=== PATIENT | female | born 1960 | race Caucasian/White ===

== ENCOUNTER 2020-03-17 22:13 | Inpatient (IN) | payer MEDICARE, SELFPAY ==
[2020-03-17 22:26] VITALS: BMI 29.5
[2020-03-17 22:27] VITALS: BP 111/70; PULSE 79; RESP 23; O2SAT 91
--- NOTE | 2020-03-17 22:59 | PM.HP ---
Providers/Chief Complaint Admitting Physician: Angela Madrigal MD Primary Care Provider: Matthew Hernandez DO Chief Complaint: covid pneumonia History of Present Illness Jo Patterson is a 59 year old female without significant past medical history presented to the [facility] second time in last 1 week for worsening shortness of breath. Patient got tested for COVID-19 on 03/04, she was discharged from the ER as she was saturating well on room air, she came back to the ER today for worsening of shortness of breath. Patient is stating that at home her temperature was 100.4 -100.5, her myalgia has been getting worse, she has not been able to eat, she feels dehydrated. No previous history of CHF, NV, stroke or heart failure. She is denying diarrhea, endorsing rib pain on taking deep breaths. Diagnostics from the other facility reviewed, white count 3.9, creatinine 1.27, magnesium 2, CRP 127, bicarb 21, there is no D-dimer however CTA was requested which did not reveal any PE however showed COVID-19 related pulmonary infiltrates versus mild vascular congestion, BNP 600, she was given normal saline fluid resuscitation, remdesivir 200 mg first dose at the facility. At the time of my evaluation she was saturating well on 10 L nasal cannula 93%, complaint of pleuritic pain bilaterally on taking deep breath. No other active complaints. Review of Systems Const: Reports: fever(s), chills, body aches, change in appetite, fatigue and malaise Eyes: Denies: change in vision ENMT: Denies: throat pain Card: Reports: dyspnea on exertion; Denies: chest pain Resp: Reports: dyspnea, non-productive cough and pain on inspiration GI: Denies: abdominal pain : Denies: flank pain Musc: Denies: neck pain Skin/Breast: Denies: rash Neuro: Denies: headache(s) Psych: Reports: anxiety Endo: Denies: polyuria David/Lymph: Denies: easy bruising All/Imm: Denies: urticaria Medications/Allergies Home Medications Medication Instructions Recorded Confirmed Last Taken Type allopurinol 300 mg PO DAILY 03/17/20 03/17/20 Unknown History cholecalciferol (vitamin D3) 100 mcg PO DAILY 03/17/20 03/17/20 Unknown History [Vitamin D3] lisinopril 20 mg PO DAILY 03/17/20 03/17/20 Unknown History omeprazole 40 mg PO DAILY 03/17/20 03/17/20 Unknown History Allergies Allergy/AdvReac Type Severity Reaction Status Date / Time levofloxacin [From Levaquin] Allergy ALGY-Rash Verified 03/17/20 22:43 Penicillins Allergy ADR-Itching Verified 03/17/20 22:42 PFSH Acute PFSH: Medical History Fibromyalgia Hypertension PPD positive, treated Surgical History H/O arthroscopy H/O elbow surgery History of carpal tunnel surgery History of esophagogastroduodenoscopy (EGD) Hx of cholecystectomy Hx of colonoscopy Family History Mother Cancer Breast cancer Denies family history of Diabetes Social History Smoking and tobacco status: never smoked Alcohol intake: never Substance/Drug Use: never Household members: spouse Housing: House Vitals/I&O/Wt Weight last 48 hrs Weight 75.705 kg Weight 75.705 kg Physical Exam Narrative: EXAM NARRATIVE: Middle-age female who is currently on 10 L nasal cannula oxygen supplementation saturating 93% Seems to be in distress because of myalgia Awake alert oriented x3 Looks extremely dehydrated No active signs of CHF exacerbation Bilateral breath sounds without adventitious rhonchi or crackles S1, S2 no tachycardia EOMI, PERRLA GCS 15 no neurological deficit Dry buccal mucous membrane Lower extremity no edema gangrene ulcer A&P Assessment and plan (1) COVID-19: Status: Acute (2) Acute respiratory failure with hypoxia: Status: Acute (3) ADELSO (acute kidney injury): Status: Acute Additional A&P Information Acute hypoxic respiratory failure secondary to worsening COVID-19 symptoms No signs of PE, currently requiring 10 L nasal cannula oxygen supplementation CRP 127, no signs of sepsis I have requested procalcitonin level, Reviewed CTA results and x-ray Continue Decadron and remdesivir for now She is endorsing rib pain on deep breaths, avoid NSAIDs because of abnormal kidney function, would only allow Tylenol for now Acute kidney injury Seems multifactorial dehydration and use of lisinopril I do not have previous creatinine level to compare her creatinine is 1.27 Not endorsing any dysuria or frequency Clinically looks dehydrated Monitor urine output and creatinine and correlate Hold lisinopril History of gout: I would continue allopurinol 100 mg a day GERD: Pepcid 20 mg daily Full code Cardiac diet DVT prophylaxis Heparin Attestations Medical Necessity Statement*: Anticipating stay in the hospital cross more than 2 midnights currently requiring 10 L nasal cannula oxygen supplementation Time Spent in Patient Care: (>than 50% of time spent in counselling and/or direct pt care on unit). 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
[2020-03-17 23:00] VITALS: BP 116/74; PULSE 79; RESP 25; O2SAT 95
[2020-03-17 23:26] VITALS: PULSE 77; RESP 18; O2SAT 90
[2020-03-18] VITALS (30 sets, daily range): BP systolic 94–141; BP diastolic 56–87; PULSE 59–103; RESP 20–31; TEMP 36.4–36.7; O2SAT 85–98
--- NOTE | 2020-03-18 00:35 | USCV_ITS ---
Jo Patterson Age: 59 Gender: F : 1960 Exam Date: 03/18/2020 06:18 Ordering Phys: Angela Madrigal MD Technologist: Teresa Clinton Exam Location: [facility] [place] Indication: COVID AND SOB BP: 118 / 76 HR: 72 Rhythm: Sinus Technical Quality: Adequate MEASUREMENTS (Male / Female) Normal Values 2D ECHO LV Diastolic Diameter PLAX 3.6 cm 4.2 - 5.9 / 3.9 - 5.3 cm LV Systolic Diameter PLAX 2.4 cm LV Chamber Size 3.0 cm IVS Diastolic Thickness 1.0 cm 0.6 - 1.0 / 0.6 - 0.9 cm IVS Systolic Thickness 1.4 cm LVPW Diastolic Thickness 1.3 cm 0.6 - 1.0 / 0.6 - 0.9 cm LVPW Systolic Thickness 1.3 cm RV Chamber Size 2.5 cm LVOT Diameter 2.0 cm LV Ejection Fraction 2D Teich 66.1 % LV Ejection Fraction MOD 2C 44.6 % LV Ejection Fraction 2C AL 44.4 % LA Diameter 3.0 cm LA Width 2.6 cm LA Height 3.4 cm RA Width 2.5 cm RA Height 3.7 cm Aorta at Sinotubular Diameter 3.0 cm M-MODE LV Diastolic Diameter MM 2.9 cm 4.2 - 5.9 / 3.9 - 5.3 cm LV Systolic Diameter MM 2.2 cm LV Ejection Fraction MM Teich 52.0 % IVS Diastolic Thickness MM 0.9 cm 0.6 - 1.0 / 0.6 - 0.9 cm IVS Systolic Thickness MM 0.9 cm LVPW Diastolic Thickness MM 0.9 cm 0.6 - 1.0 / 0.6 - 0.9 cm LVPW Systolic Thickness MM 1.7 cm RV Diastolic Diameter MM 1.0 cm Aortic Annulus Diameter 3.4 cm LA Ao Ratio MM 1.2 MV E Point Septal Separation 0.4 cm DOPPLER AV Peak Velocity 146.0 cm/s LVOT Peak Velocity 103.0 cm/s AV Area Cont Eq vti 3.0 cm squared AV Area Cont Eq pk 2.2 cm squared MV Area PHT 5.0 cm squared Mitral E to A Ratio 0.7 MV E' Velocity 35.5 cm/s Mitral E to MV E' Ratio 16.0 Mitral E to LV E' Lateral Ratio 17.3 Mitral E to LV E' Septal Ratio 15.0 TR Peak Velocity 169.5 cm/s TR Peak Gradient 11.5 mmHg TR Mean Velocity 119.4 cm/s TR Mean Gradient 6.8 mmHg TR Velocity Time Integral 47.7 cm TV Peak E Velocity 86.0 cm/s Right Atrial Pressure 3.0 mmHg Pulmonary Artery Systolic Pressu 14.5 mmHg PV Peak Velocity 112.0 cm/s RV Acceleration Time 0.2 s RV Ejection Time 0.4 s RV AcT/ET 0.4 FINDINGS Left Ventricle Normal left ventricular size and systolic function, EF 55 %. No regional wall motion abnormalities. Grade I/IV diastolic dysfunction (abnormal relaxation filling pattern), normal to mildly elevated filling pressures. Right Ventricle The right ventricle is normal in size and function. Right Atrium The right atrium is normal in size. Left Atrium There is flow turbulence in the interatrial septum, suggesting a patent foramen ovale Mitral Valve Thickened mitral valve. Mild mitral annular calcification. Aortic Valve Mild aortic valve regurgitation. Tricuspid Valve Not visualized well Pulmonic Valve Pulmonic valve not well visualized. Pericardium No pericardial effusion. Aorta Normal ascending aorta dimension. CONCLUSIONS Normal left ventricular size and systolic function, EF 55 %. No regional wall motion abnormalities. Grade I/IV diastolic dysfunction (abnormal relaxation filling pattern), normal to mildly elevated filling pressures. There is flow turbulence in the interatrial septum, suggesting a patent foramen ovale. Thickened mitral valve. Mild mitral annular calcification. Mild aortic valve regurgitation. There is no pericardial effusion. There are no intracardiac masses. No previous study is available for comparison. Dr Tosha Lopez MD [facility] (Electronically Signed) Final Date: 18 March 2020 09:03 S
[2020-03-18] MEDS: heparin 5,000 unit/mL INJ 1 mL 5000 UNIT SUBCUT ×2 (00:49→08:15)
[2020-03-18 01:24] LABS: Troponin T (5th) Once 7 ng/L (0-10)
[2020-03-18 01:50] LABS: Procalcitonin 0.22 ng/mL (0-0.5)
[2020-03-18 06:27] LABS: Hematocrit 40.5 % (37.0-47.0); Hemoglobin 13.5 g/dL (11.5-15.3); Lymphocytes # 0.7 10^3/uL (0.8-4.8); Mean Corpuscular HGB Conc 33.3 g/dL (30.0-36.0); Mean Corpuscular Volume 93.1 fL (81-99); Monocytes # 0.1 10^3/uL (0.2-0.9); Monocytes % 5.8 %; Neutrophils # 1.57 10^3/uL (1.8-7.7); Neutrophils % 64.6 %; Nucleated Red Blood Cells % 0 %; Platelet Count 222 10^3/cmm (130-400); Red Blood Count 4.35 10^6/uL (4.1-5.3); Red Cell Distribution Width 12.8 % (12.1-15.1); White Blood Count 2.4 10^3/uL (4.0-10.0)
[2020-03-18 07:10] LABS: Slide Review Slide Review Perform
[2020-03-18 07:13] LABS: D Dimer 1.25 ug/mIFEU (0-0.59)
[2020-03-18 07:16] LABS: Alanine Aminotransferase 29 U/L (0-33); Albumin Level 3.1 g/dL (3.5-5.2); Alkaline Phosphatase 42 IU/L (35-105); Anion Gap 14.1 (5-19); Aspartate Amino Transferase 73 U/L (0-32); Blood Urea Nitrogen 17 mg/dL (8-23); C Reactive Protein 104.5 mg/L (0.0-4.9); Calcium 8.5 mg/dL (8.5-10.5); Carbon Dioxide 24 mmol/L (22-29); Chloride 108 mmol/L (98-107); Globulin 3.2 g/dL (1.3-4.6); Glomerular Filtration Rate 85.1 mL/min (90-130); Glucose 137 mg/dL (65-115); Lactate Dehydrogenase 680 U/L (135-214); Osmolality Calculated 298 mOsm/kg (285-295); Potassium 4.1 mmol/L (3.5-5.1); Sodium 142 mmol/L (136-145); Total Bilirubin 0.3 mg/dL (0.15-1.2); Total Protein 6.3 g/dL (6.6-8.7)
[2020-03-18] MEDS: ascorbic acid 500 mg Tablet PO (08:16)
[2020-03-18] MEDS: lisinopril 20 mg Tablet PO (08:16)
[2020-03-18] MEDS: dexamethasone 4 mg Tablet 6 MG PO (08:16)
[2020-03-18] MEDS: zinc gluconate 50 mg Tablet PO (08:16)
[2020-03-18] MEDS: allopurinol 100 mg Tablet PO (08:18)
[2020-03-18] MEDS: albuterol 8 gm MDI 2 PUFF INHALATION ×2 (08:52→20:29)
--- NOTE | 2020-03-18 10:50 | P.PN_ITS ---
Subjective Subjective: Interval history: Patient reports feeling better this morning. She is saturating in the high 80s on 15 L by high flow nasal cannula. She denies chest pain or abdominal pain. Her white blood cell count is 2.4 which is likely related to COVID-19 infection. Platelets and hemoglobin are stable. Vitals/I&O/Wt Last Vital Signs Temp 97.7 F 03/18/20 04:00 Pulse 93 03/18/20 08:53 Resp 24 H 03/18/20 08:53 BP 133/87 03/18/20 08:00 Pulse Ox 91 03/18/20 08:53 03/17/20 03/18/20 03/18/20 22:59 06:59 14:59 Intake Total 750 / 750 360 / 360 Balance 750 / 750 360 / 360 Weight last 48 hrs Weight 75.705 kg Weight 75.705 kg Physical Exam Const: COMMON NORMALS: no acute distress and patient oriented x3 Resp: COMMON NORMALS: normal respiratory effort OTHER: Bibasilar Rales. Cardio: COMMON NORMALS: regular rate, regular rhythm and S2 normal heart sound present RATE: regular rate RHYTHM: regular rhythm HEART SOUNDS: S2 normal heart sound present OTHER: No lower extremity edema GI: COMMON NORMALS: Normal to inspection, nondistended, normoactive bowel sounds present, Soft to palpation and non-tender PALPATION: Yes Soft to pal pation Neuro: COMMON NORMALS: patient oriented x3 and no focal motor deficits Data : 03/18/20 04:10 03/18/20 06:49 A&P Assessment and plan (1) COVID-19: Status: Acute (2) Acute respiratory failure with hypoxia: Status: Acute (3) ADELSO (acute kidney injury): Baseline creatinine is unknown. Status: Acute (4) Leukopenia: Present admission. Likely related to COVID-19 infection. Status: Acute Additional A&P Information Acute hypoxic respiratory failure secondary to worsening COVID-19 symptoms No signs of PE, currently requiring 10 L nasal cannula oxygen supplementation CRP 127, no signs of sepsis I have requested procalcitonin level, Reviewed CTA results and x-ray Continue Decadron and remdesivir for now She is endorsing rib pain on deep breaths, avoid NSAIDs because of abnormal kidney function, would only allow Tylenol for now Acute kidney injury Seems multifactorial dehydration and use of lisinopril I do not have previous creatinine level to compare her creatinine is 1.27 Not endorsing any dysuria or frequency Clinically looks dehydrated Monitor urine output and creatinine and correlate Hold lisinopril History of gout: I would continue allopurinol 100 mg a day GERD: Pepcid 20 mg daily Full code Cardiac diet DVT prophylaxis Heparin PLAN: We will start patient on Protonix for GI protection. Given degree of hypoxia will initiate therapeutic anticoagulation with Eliquis as distal microthrombi cannot be completely ruled out. Should patient's oxygen requirement worsened will initiate heated high flow. Monitor WBC and if not recovering with treatment further hematologic evaluation will need to be done. Attestations Medical Necessity Statement*: Patient with hypoxic respiratory failure and COVID-19 pneumonia requires close ICU monitoring and treatment. 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
[2020-03-18] MEDS: pantoprazole DR 40 mg Tablet PO (11:08)
[2020-03-18] MEDS: apixaban 5 mg Tablet PO (17:40)
[2020-03-18] MEDS: remdesivir 100 MG in sodium chloride 0.9% (100 ml) 100 ML IV (17:44)
--- NOTE | 2020-03-18 20:00 | PC.NURSE ---
Patient continues to sit up in the chair. Patient states that she is not hurting anywhere but his having trouble breathing. Lung sounds were diminished in the lower bases posteriorly. Discussed with patient that her daughter had called and that she was going to call tomorrow morning so they could face time so she would be able to see her and grand children. She stated that that would make her very happy because she missed her and that he would be worrying about her. No other complaints or needs voiced.
[2020-03-19] VITALS (29 sets, daily range): BP systolic 88–145; BP diastolic 50–83; PULSE 61–96; RESP 16–27; TEMP 36.6–37; O2SAT 88–98
[2020-03-19 04:29] LABS: Basophils % 0.2 %; Hematocrit 40.6 % (37.0-47.0); Hemoglobin 13.4 g/dL (11.5-15.3); Lymphocytes # 0.7 10^3/uL (0.8-4.8); Lymphocytes % 15.5 %; Mean Corpuscular Hemoglobin 30.5 pg (28.0-34.0); Mean Corpuscular Volume 92.3 fL (81-99); Mean Platelet Volume 9.8 fL (7.4-10.4); Monocytes # 0.5 10^3/uL (0.2-0.9); Monocytes % 9.9 %; Neutrophils % 72.9 %; Nucleated Red Blood Cells % 0 %; Platelet Count 378 10^3/cmm (130-400); Red Cell Distribution Width 12.6 % (12.1-15.1); White Blood Count 4.7 10^3/uL (4.0-10.0)
[2020-03-19 04:54] LABS: Alanine Aminotransferase 36 U/L (0-33); Albumin Level 3.1 g/dL (3.5-5.2); Alkaline Phosphatase 43 IU/L (35-105); Anion Gap 14.1 (5-19); Aspartate Amino Transferase 52 U/L (0-32); Blood Urea Nitrogen 26 mg/dL (8-23); Calcium 9.1 mg/dL (8.5-10.5); Carbon Dioxide 23 mmol/L (22-29); Chloride 108 mmol/L (98-107); Globulin 3.1 g/dL (1.3-4.6); Glomerular Filtration Rate 85.1 mL/min (90-130); Glucose 198 mg/dL (65-115); Osmolality Calculated 302 mOsm/kg (285-295); Potassium 4.1 mmol/L (3.5-5.1); Sodium 141 mmol/L (136-145); Total Bilirubin 0.3 mg/dL (0.15-1.2); Total Protein 6.2 g/dL (6.6-8.7)
[2020-03-19 05:23] LABS: D Dimer 0.93 ug/mIFEU (0-0.59)
[2020-03-19 05:42] LABS: Slide Review Slide Review Perform
--- NOTE | 2020-03-19 08:17 | PC.NURSE ---
patient resting in chair upon assessment. high flow nasal cannula at 15 L. Patient's breakfast tray was set up. Patient denied needing anything at this time.
[2020-03-19] MEDS: dexamethasone 4 mg Tablet 6 MG PO (08:55)
[2020-03-19] MEDS: pantoprazole DR 40 mg Tablet PO (08:55)
[2020-03-19] MEDS: apixaban 5 mg Tablet PO ×2 (08:55→18:29)
[2020-03-19] MEDS: zinc gluconate 50 mg Tablet PO (08:55)
[2020-03-19] MEDS: allopurinol 100 mg Tablet PO (08:55)
[2020-03-19] MEDS: albuterol 8 gm MDI 2 PUFF INHALATION ×2 (09:23→14:23)
--- NOTE | 2020-03-19 10:24 | P.PN_ITS ---
Subjective Subjective: Interval history: Patient reports feeling better this morning. Her oxygen requirement improved and now she saturates 94% on 8 L. She denies chest pain or abdominal pain currently. Reports that she wants to do well has left lower quadrant abdominal pain whenever she gets constipated and this been going on for a long period of time. Vitals/I&O/Wt Last Vital Signs Temp 97.8 F 03/19/20 08:00 Pulse 84 03/19/20 09:27 Resp 18 03/19/20 09:26 BP 117/65 03/19/20 08:00 Pulse Ox 94 03/19/20 09:27 03/18/20 03/19/20 03/19/20 22:59 06:59 14:59 Intake Total 220 / 700 120 / 120 Output Total 250 / 250 Balance 220 / 700 -250 / 450 120 / 120 Weight last 48 hrs Weight 75.705 kg Weight 75.705 kg Physical Exam Const: COMMON NORMALS: no acute distress and patient oriented x3 Resp: COMMON NORMALS: normal respiratory effort OTHER: Bibasilar Rales. Cardio: COMMON NORMALS: regular rate, regular rhythm and S2 normal heart sound present RATE: regular rate RHYTHM: regular rhythm HEART SOUNDS: S2 normal heart sound present OTHER: No lower extremity edema GI: COMMON NORMALS: Normal to inspection, nondistended, normoactive bowel sounds present, Soft to palpation and non-tender PALPATION: Yes Soft to palpation Neuro: COMMON NORMALS: patient oriented x3 and no focal motor deficits Data : 03/19/20 03:20 03/19/20 03:20 A&P Assessment and plan (1) COVID-19: Status: Acute (2) Acute respiratory failure with hypoxia: Status: Acute (3) ADELSO (acute kidney injury): Baseline creatinine is unknown. Status: Acute (4) Leukopenia: Present admission. Likely related to COVID-19 infection. Improved Status: Acute Additional A&P Information Acute hypoxic respiratory failure secondary to worsening COVID-19 symptoms No signs of PE, currently requiring 10 L nasal cannula oxygen supplementation CRP 127, no signs of sepsis I have requested procalcitonin level, Reviewed CTA results and x-ray Continue Decadron and remdesivir for now She is endorsing rib pain on deep breaths, avoid NSAIDs because of abnormal kidney function, would only allow Tylenol for now Acute kidney injury Seems multifactorial dehydration and use of lisinopril I do not have previous creatinine level to compare her creatinine is 1.27 Not endorsing any dysuria or frequency Clinically looks dehydrated Monitor urine output and creatinine and correlate Hold lisinopril History of gout: I would continue allopurinol 100 mg a day GERD: Pepcid 20 mg daily Full code Cardiac diet DVT prophylaxis Heparin PLAN: Continue current monitoring and treatment including anticoagulation. No medication changes will be made today. Repeat inflammatory markers tomorrow Attestations Medical Necessity Statement*: Patient with respiratory failure requiring high oxygen demand requires close ICU monitoring and treatment. 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
[2020-03-19] MEDS: remdesivir 100 MG in sodium chloride 0.9% (100 ml) 100 ML IV (18:29)
[2020-03-20] VITALS (31 sets, daily range): BP systolic 96–153; BP diastolic 53–83; PULSE 52–83; RESP 15–29; TEMP 36.5–37.1; O2SAT 83–99
[2020-03-20] MEDS: albuterol 8 gm MDI 2 PUFF INHALATION ×2 (04:30→21:29)
[2020-03-20 04:38] LABS: ABG PCO2 32.4 mmHg (35-45); ABG PH Result 7.45 (7.35-7.45); Alveolar-Arterial Oxygen Gradi 8.3 mmHg (5-10); Arterial Blood Gas Hematocrit 41.3 % (37-47); Blood Gas Allen Test Pos; Blood Gas Operator Identificat HARKR; Blood Gas Sample Site Radial, right; Blood Gas Sample Type Arterial; Carboxyhemoglobin 0.5 %THgb (0.4-20.1); HCO3 ABG 22.3 mmol/L (22-26); HGB O2 Sat 81.2 % (95-100); Ionized Calcium Level - ABG 1.3 mmol/L (1.1-1.4); Methemoglobin 0.5 % (0.4-1.5); Oxygen Device OXY MASK; Potassium Level - ABG 3.5 mmol/L (3.5-5.0); Total Hemoglobin 13.5 g/dL (12-16)
[2020-03-20 06:02] LABS: Basophils % 0.1 %; Hematocrit 39.2 % (37.0-47.0); Hemoglobin 12.6 g/dL (11.5-15.3); Lymphocytes # 0.9 10^3/uL (0.8-4.8); Mean Corpuscular HGB Conc 32.1 g/dL (30.0-36.0); Mean Corpuscular Hemoglobin 30.5 pg (28.0-34.0); Mean Corpuscular Volume 94.9 fL (81-99); Mean Platelet Volume 10.1 fL (7.4-10.4); Monocytes # 0.9 10^3/uL (0.2-0.9); Monocytes % 11.2 %; Neutrophils # 5.92 10^3/uL (1.8-7.7); Neutrophils % 75.7 %; Nucleated Red Blood Cells % 0 %; Platelet Count 359 10^3/cmm (130-400); Red Blood Count 4.13 10^6/uL (4.1-5.3); Red Cell Distribution Width 12.9 % (12.1-15.1); White Blood Count 7.8 10^3/uL (4.0-10.0)
[2020-03-20 06:13] LABS: D Dimer 1.04 ug/mIFEU (0-0.59)
[2020-03-20 06:21] LABS: Alanine Aminotransferase 36 U/L (0-33); Albumin Level 2.9 g/dL (3.5-5.2); Alkaline Phosphatase 47 IU/L (35-105); Aspartate Amino Transferase 39 U/L (0-32); Blood Urea Nitrogen 24 mg/dL (8-23); C Reactive Protein 24.6 mg/L (0.0-4.9); Calcium 8.9 mg/dL (8.5-10.5); Carbon Dioxide 22 mmol/L (22-29); Chloride 110 mmol/L (98-107); Glomerular Filtration Rate 101.6 mL/min (90-130); Glucose 188 mg/dL (65-115); Magnesium 2.2 mg/dL (1.7-2.3); Osmolality Calculated 309 mOsm/kg (285-295); Sodium 145 mmol/L (136-145); Total Bilirubin 0.3 mg/dL (0.15-1.2); Total Protein 5.9 g/dL (6.6-8.7)
[2020-03-20 07:15] LABS: Lactate Dehydrogenase 561 U/L (135-214)
[2020-03-20 07:21] LABS: Slide Review Slide Review Perform
--- NOTE | 2020-03-20 07:27 | P.PN_ITS ---
Subjective Subjective: Interval history: Patient's oxygen requirement worsened last night. She had to be placed on 40L of oxygen 65% FiO2. This morning patient reports that her breathing is comfortable on current oxygen therapy. She denies chest pain or abdominal pain. Her inflammatory markers are improving. Since mucous membranes this morning are dry. Her appetite and oral intake are poor. She had approximately 400 mL of urinary output since yesterday. Her hemoglobin and platelets are stable. Vitals/I&O/Wt Last Vital Signs Temp 98.4 F 03/20/20 04:00 Pulse 76 03/20/20 05:10 Resp 18 03/20/20 05:10 BP 96/53 03/20/20 05:00 Pulse Ox 92 03/20/20 05:10 03/19/20 03/20/20 03/20/20 22:59 06:59 14:59 Intake Total 340 / 580 150 / 730 Output Total 400 / 400 Balance 340 / 580 -250 / 330 Physical Exam Const: COMMON NORMALS: no acute distress and patient oriented x3 Resp: COMMON NORMALS: normal respiratory effort OTHER: Bibasilar Rales. Cardio: COMMON NORMALS: regular rate, regular rhythm and S2 normal heart sound present RATE: regular rate RHYTHM: regular rhythm HEART SOUNDS: S2 normal heart sound present OTHER: No lower extremity edema GI: COMMON NORMALS: Normal to inspection, nondistended, normoactive bowel sounds present, Soft to palpation and non-tender PALPATION: Yes Soft to palpation Neuro: COMMON NORMALS: patient oriented x3 and no focal motor deficits Data : 03/20/20 04:00 03/20/20 04:00 A&P Assessment and plan (1) COVID-19: Status: Acute (2) Acute respiratory failure with hypoxia: Status: Acute (3) ADELSO (acute kidney injury): Baseline creatinine is unknown. Status: Acute (4) Leukopenia: Present admission. Likely related to COVID-19 infection. Improved Status: Acute Additional A&P Information Acute hypoxic respiratory failure secondary to worsening COVID-19 symptoms No signs of PE, currently requiring 10 L nasal cannula oxygen supplementation CRP 127, no signs of sepsis I have requested procalcitonin level, Reviewed CTA results and x-ray Continue Decadron and remdesivir for now She is endorsing rib pain on deep breaths, avoid NSAIDs because of abnormal kidney function, would only allow Tylenol for now Acute kidney injury, improved Seems multifactorial dehydration and use of lisinopril I do not have previous creatinine level to compare her creatinine is 1.27 Not endorsing any dysuria or frequency Clinically looks dehydrated Monitor urine output and creatinine and correlate Hold lisinopril History of gout: I would continue allopurinol 100 mg a day GERD: Pepcid 20 mg daily Full code Cardiac diet DVT prophylaxis Eliquis PLAN: Continue current monitoring and treatment including anticoagulation. Will request chest x-ray this morning. Encouraged oral intake. Continue holding lisinopril. Attestations Medical Necessity Statement*: Patient with acute hypoxic respiratory failure requires close ICU monitoring and treatment. 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
--- NOTE | 2020-03-20 07:31 | XR_ITS ---
WS: [id number] PORTABLE CHEST HISTORY: COVID-19 pneumonia COMPARISON: 03/17/2020 Bibasilar peripheral patchy opacifications. Overall slight improvement in the opacifications througho ut both lungs as compared to 01/16/2020. No pleural effusion or pneumothorax. Cardiac size: Normal. Mediastinum/Aorta: Normal mediastinum. No osseous abnormality seen. XR/XR chest 1V portable [id number] IMPRESSION: Persistent but improvement in bibasilar Covid like opacifications.
--- NOTE | 2020-03-20 08:27 | PC.SOCIAL ---
IMM Update Attempted to update IMM with patient's , but he did not answer the phone.
--- NOTE | 2020-03-20 08:42 | PC.SOCIAL ---
IMM Update Pg. 2 of IMM updated with patient's over the phone.
[2020-03-20] MEDS: zinc gluconate 50 mg Tablet PO (08:47)
[2020-03-20] MEDS: pantoprazole DR 40 mg Tablet PO (08:47)
[2020-03-20] MEDS: dexamethasone 4 mg Tablet 6 MG PO (08:48)
[2020-03-20] MEDS: apixaban 5 mg Tablet PO ×2 (08:48→17:48)
--- NOTE | 2020-03-20 09:31 | PC.NURSE ---
Assessment Patient is sitting up in bed watching tv this AM. Alert and orientated x 4. Aware of surroundings. Lung sounds diminished and clear.
[2020-03-20] MEDS: allopurinol 100 mg Tablet PO (12:27)
[2020-03-20] MEDS: remdesivir 100 MG in sodium chloride 0.9% (100 ml) 100 ML IV (17:50)
[2020-03-21] VITALS (32 sets, daily range): BP systolic 107–160; BP diastolic 67–88; PULSE 51–97; RESP 13–22; TEMP 36.7–37.4; O2SAT 88–100
[2020-03-21 04:42] LABS: Basophils % 0.2 %; Hematocrit 36.6 % (37.0-47.0); Hemoglobin 12.2 g/dL (11.5-15.3); Lymphocytes # 1.1 10^3/uL (0.8-4.8); Lymphocytes % 13.3 %; Mean Corpuscular HGB Conc 33.3 g/dL (30.0-36.0); Mean Corpuscular Hemoglobin 30.8 pg (28.0-34.0); Mean Corpuscular Volume 92.4 fL (81-99); Mean Platelet Volume 9.9 fL (7.4-10.4); Monocytes # 0.6 10^3/uL (0.2-0.9); Monocytes % 6.7 %; Neutrophils # 6.32 10^3/uL (1.8-7.7); Neutrophils % 75.8 %; Nucleated Red Blood Cells % 0 %; Platelet Count 325 10^3/cmm (130-400); Red Blood Count 3.96 10^6/uL (4.1-5.3); Red Cell Distribution Width 12.6 % (12.1-15.1); White Blood Count 8.3 10^3/uL (4.0-10.0)
[2020-03-21 05:09] LABS: Alanine Aminotransferase 50 U/L (0-33); Alkaline Phosphatase 50 IU/L (35-105); Blood Urea Nitrogen 17 mg/dL (8-23); Calcium 8.6 mg/dL (8.5-10.5); Carbon Dioxide 24 mmol/L (22-29); Chloride 108 mmol/L (98-107); Globulin 2.1 g/dL (1.3-4.6); Glomerular Filtration Rate 125.4 mL/min (90-130); Glucose 141 mg/dL (65-115); Osmolality Calculated 296 mOsm/kg (285-295); Sodium 141 mmol/L (136-145); Total Bilirubin 0.5 mg/dL (0.15-1.2); Total Protein 5.1 g/dL (6.6-8.7)
[2020-03-21 05:11] LABS: Anion Gap 13.2 (5-19); Aspartate Amino Transferase 57 U/L (0-32); Potassium 4.2 mmol/L (3.5-5.1)
--- NOTE | 2020-03-21 09:00 | PM.PN ---
Subjective Subjective: Interval history: Patient reports during better this morning. Reports that her appetite and oral intake improving. Her FiO2 is down to 40%. Vitals are stable. Vitals/I&O/Wt Last Vital Signs Temp 98.1 F 03/21/20 04:00 Pulse 58 L 03/21/20 04:00 Resp 17 03/21/20 04:00 BP 123/68 03/21/20 04:00 Pulse Ox 94 03/21/20 04:00 03/20/20 03/21/20 03/21/20 22:59 06:59 14:59 Intake Total 200 / 200 50 / 250 Output Total 500 / 500 Balance -300 / -300 50 / -250 Physical Exam Const: COMMON NORMALS: no acute distress and patient oriented x3 Resp: COMMON NORMALS: normal respiratory effort OTHER: Bibasilar Rales. Cardio: COMMON NORMALS: regular rate, regular rhythm and S2 normal heart sound present RATE: regular rate RHYTHM: regular rhythm HEART SOUNDS: S2 normal heart sound present OTHER: No lower extremity edema GI: COMMON NORMALS: Normal to inspection, nondistended, normoactive bowel sounds present, Soft to palpation and non-tender PALPATION: Yes Soft to palpation Neuro: COMMON NORMALS: patient oriented x3 and no focal motor deficits Data : 03/21/20 04:00 03/21/20 04:00 A&P Assessment and plan (1) COVID-19: Status: Acute (2) Acute respiratory failure with hypoxia: Status: Acute (3) ADELSO (acute kidney injury): Baseline creatinine is unknown. Status: Acute (4) Leukopenia: Present admission. Likely related to COVID-19 infection. Improved Status: Acute Additional A&P Information Acute hypoxic respiratory failure secondary to worsening COVID-19 symptoms No signs of PE, currently requiring 10 L nasal cannula oxygen supplementation CRP 127, no signs of sepsis I have requested procalcitonin level, Reviewed CTA results and x-ray Continue Decadron and remdesivir for now She is endorsing rib pain on deep breaths, avoid NSAIDs because of abnormal kidney function, would only allow Tylenol for now Acute kidney injury, improved Seems multifactorial dehydration and use of lisinopril I do not have previous creatinine level to compare her creatinine is 1.27 Not endorsing any dysuria or frequency Clinically looks dehydrated Monitor urine output and creatinine and correlate Hold lisinopril History of gout: I would continue allopurinol 100 mg a day GERD: Pepcid 20 mg daily Full code Cardiac diet DVT prophylaxis Eliquis PLAN: I will continue current monitoring and treatment and hopefully patient's oxygen requirement further improves so we can transfer her out of ICU. 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
[2020-03-21] MEDS: allopurinol 100 mg Tablet PO (09:17)
[2020-03-21] MEDS: apixaban 5 mg Tablet PO ×2 (09:17→17:31)
[2020-03-21] MEDS: zinc gluconate 50 mg Tablet PO (09:18)
[2020-03-21] MEDS: dexamethasone 4 mg Tablet 6 MG PO (09:18)
[2020-03-21] MEDS: pantoprazole DR 40 mg Tablet PO (09:18)
[2020-03-21] MEDS: remdesivir 100 MG in sodium chloride 0.9% (100 ml) 100 ML IV (17:31)
[2020-03-22] VITALS (34 sets, daily range): BP systolic 100–141; BP diastolic 54–84; PULSE 62–101; RESP 16–25; TEMP 36.8–36.9; O2SAT 88–100
[2020-03-22 04:31] LABS: Basophils % 0.4 %; Hemoglobin 12.4 g/dL (11.5-15.3); Lymphocytes # 1.2 10^3/uL (0.8-4.8); Lymphocytes % 13.7 %; Mean Corpuscular HGB Conc 33.5 g/dL (30.0-36.0); Mean Corpuscular Hemoglobin 30.7 pg (28.0-34.0); Mean Corpuscular Volume 91.6 fL (81-99); Mean Platelet Volume 9.4 fL (7.4-10.4); Monocytes # 0.5 10^3/uL (0.2-0.9); Monocytes % 5.1 %; Neutrophils # 6.73 10^3/uL (1.8-7.7); Neutrophils % 75.2 %; Nucleated Red Blood Cells % 0.2 %; Platelet Count 348 10^3/cmm (130-400); Red Blood Count 4.04 10^6/uL (4.1-5.3); Red Cell Distribution Width 12.6 % (12.1-15.1)
[2020-03-22 04:54] LABS: Alanine Aminotransferase 39 U/L (0-33); Albumin Level 2.8 g/dL (3.5-5.2); Alkaline Phosphatase 56 IU/L (35-105); Anion Gap 12.9 (5-19); Aspartate Amino Transferase 35 U/L (0-32); Blood Urea Nitrogen 19 mg/dL (8-23); Calcium 8.5 mg/dL (8.5-10.5); Carbon Dioxide 24 mmol/L (22-29); Chloride 106 mmol/L (98-107); Globulin 2.7 g/dL (1.3-4.6); Glomerular Filtration Rate 101.6 mL/min (90-130); Glucose 182 mg/dL (65-115); Osmolality Calculated 295 mOsm/kg (285-295); Potassium 3.9 mmol/L (3.5-5.1); Sodium 139 mmol/L (136-145); Total Bilirubin 0.6 mg/dL (0.15-1.2); Total Protein 5.5 g/dL (6.6-8.7)
[2020-03-22 04:55] LABS: Slide Review Slide Review Perform
[2020-03-22] MEDS: pantoprazole DR 40 mg Tablet PO (09:00)
[2020-03-22] MEDS: dexamethasone 4 mg Tablet 6 MG PO (09:00)
[2020-03-22] MEDS: zinc gluconate 50 mg Tablet PO (09:00)
[2020-03-22] MEDS: apixaban 5 mg Tablet PO ×2 (09:00→18:40)
[2020-03-22] MEDS: allopurinol 100 mg Tablet PO (09:03)
--- NOTE | 2020-03-22 11:16 | PC.SOCIAL ---
IMM Updated Updated pt's on Pg 2 IMM, via phone. No questions voiced. Signed, dated, & timed the copy to be scanned into chart.
--- NOTE | 2020-03-22 13:41 | PM.PN ---
Subjective Subjective: Interval history: Patient reports during better this morning. Reports that her appetite and oral intake further improve. She still requires high flow oxygen. Vitals are stable. Vitals/I&O/Wt Last Vital Signs Temp 98.5 F 03/22/20 00:00 Pulse 67 03/22/20 10:29 Resp 16 03/22/20 10:29 BP 101/56 03/22/20 06:00 Pulse Ox 94 03/22/20 10:29 03/21/20 03/22/20 03/22/20 22:59 06:59 14:59 Intake Total 540 / 1040 120 / 1160 Output Total 1250 / 1550 Balance -710 / -510 120 / -390 Physical Exam Const: COMMON NORMALS: no acute distress and patient oriented x3 Resp: COMMON NORMALS: normal respiratory effort OTHER: Bibasilar Rales. Cardio: COMMON NORMALS: regular rate, regular rhythm and S2 normal heart sound present RATE: regular rate RHYTHM: regular rhythm HEART SOUNDS: S2 normal heart sound present OTHER: No lower extremity edema GI: COMMON NORMALS: Normal to inspection, nondistended, normoactive bowel sounds present, Soft to palpation and non-tender PALPATION: Yes Soft to palpation Neuro: COMMON NORMALS: patient oriented x3 and no focal motor deficits Data : 03/22/20 04:05 03/22/20 04:05 A&P Assessment and plan (1) COVID-19: Status: Acute (2) Acute respiratory failure with hypoxia: Status: Acute (3) ADELSO (acute kidney injury): Baseline creatinine is unknown. Status: Acute (4) Leukopenia: Present admission. Likely related to COVID-19 infection. Improved Status: Acute Additional A&P Information Acute hypoxic respiratory failure secondary to worsening COVID-19 symptoms No signs of PE, currently requiring 10 L nasal cannula oxygen supplementation CRP 127, no signs of sepsis I have requested procalcitonin level, Reviewed CTA results and x-ray Continue Decadron and remdesivir for now She is endorsing rib pain on deep breaths, avoid NSAIDs because of abnormal kidney function, would only allow Tylenol for now Acute kidney injury, improved Seems multifactorial dehydration and use of lisinopril I do not have previous creatinine level to compare her creatinine is 1.27 Not endorsing any dysuria or frequency Clinically looks dehydrated Monitor urine output and creatinine and correlate Hold lisinopril History of gout: I would continue allopurinol 100 mg a day GERD: Pepcid 20 mg daily Full code Cardiac diet DVT prophylaxis Eliquis PLAN: Continue current monitoring and treatment and wean off oxygen as patient tolerates. Continue anticoagulation. Physical therapy Attestations Medical Necessity Statement*: Patient with acute hypoxic respiratory failure requires close ICU monitoring and treatment. Coding Level of Care Code Acute [place] Manager for [facility] Diagnoses COVID-19 U07.1 Acute respiratory failure with hypoxia J96.01 ADELSO (acute kidney injury) N17.9 Leukopenia D72.819
[2020-03-22] MEDS: cefTRIAXone 1,000 MG in sodium chloride 0.9% (plus) 50 ML 100 MG IV (15:43)
[2020-03-22] MEDS: albuterol 8 gm MDI 2 PUFF INHALATION (21:07)
[2020-03-23] VITALS (34 sets, daily range): BP systolic 99–145; BP diastolic 62–82; PULSE 55–99; RESP 16–25; TEMP 36.5–37; O2SAT 21–95
[2020-03-23 04:27] LABS: Basophils % 0.4 %; Hematocrit 37.4 % (37.0-47.0); Hemoglobin 12.8 g/dL (11.5-15.3); Lymphocytes % 10.6 %; Mean Corpuscular HGB Conc 34.2 g/dL (30.0-36.0); Mean Corpuscular Hemoglobin 31.2 pg (28.0-34.0); Mean Corpuscular Volume 91.2 fL (81-99); Mean Platelet Volume 9.7 fL (7.4-10.4); Monocytes # 0.4 10^3/uL (0.2-0.9); Monocytes % 4.8 %; Neutrophils # 7.09 10^3/uL (1.8-7.7); Neutrophils % 76.7 %; Nucleated Red Blood Cells % 0.2 %; Platelet Count 369 10^3/cmm (130-400); Red Cell Distribution Width 12.5 % (12.1-15.1); White Blood Count 9.2 10^3/uL (4.0-10.0)
[2020-03-23 04:54] LABS: Alanine Aminotransferase 31 U/L (0-33); Albumin Level 2.9 g/dL (3.5-5.2); Alkaline Phosphatase 65 IU/L (35-105); Anion Gap 13.6 (5-19); Aspartate Amino Transferase 30 U/L (0-32); Blood Urea Nitrogen 20 mg/dL (8-23); Calcium 8.9 mg/dL (8.5-10.5); Carbon Dioxide 25 mmol/L (22-29); Chloride 105 mmol/L (98-107); Globulin 2.7 g/dL (1.3-4.6); Glomerular Filtration Rate 101.6 mL/min (90-130); Glucose 188 mg/dL (65-115); Magnesium 2.2 mg/dL (1.7-2.3); Osmolality Calculated 296 mOsm/kg (285-295); Potassium 4.6 mmol/L (3.5-5.1); Sodium 139 mmol/L (136-145); Total Bilirubin 0.5 mg/dL (0.15-1.2); Total Protein 5.6 g/dL (6.6-8.7)
[2020-03-23] MEDS: albuterol 8 gm MDI 2 PUFF INHALATION ×2 (08:59→16:54)
[2020-03-23] MEDS: zinc gluconate 50 mg Tablet PO (09:55)
[2020-03-23] MEDS: apixaban 5 mg Tablet PO ×2 (09:55→17:18)
[2020-03-23] MEDS: dexamethasone 4 mg Tablet 6 MG PO (09:55)
[2020-03-23] MEDS: allopurinol 100 mg Tablet PO (09:55)
[2020-03-23] MEDS: pantoprazole DR 40 mg Tablet PO (09:55)
--- NOTE | 2020-03-23 10:51 | PM.PN ---
Subjective Subjective: Interval history: 59-year-old female with a past medical history significant for gout, gastroesophageal reflux disease, vitamin-D deficiency, hypertension and COVID-19 infection diagnosed on 03/04 who presented to the hospital with respiratory distress. This was associated with fever, muscle aches, poor appetitie and generalized weakness. Laboratory workup on arrival showed a WBC of 2.4, hemoglobin of 13.5, hematocrit of 40.5 and platelet count 222. D-dimer was elevated at 1.25. Sodium 142, potassium 4.1, chloride 108, bicarb 24, BUN 17 and creatinine of 0.7. Glucose of 137. AST of 73. CRP of 104.5 and pro-calcitonin of 0.22. Chest-xray performed at outside facility prior to transfer had shown bilateral groundglass opacities. Also did have a CTA chest PE protocol which did not show PE however per H&P did show bilateral multi-focal pneumonia consistent with covid-19 infection. 03/18 ECHO was done which showed pEF with grade 1 Diastolic dysfunction. In addition she was noted to have flow turbulence in the intra-atrial septum suggestive of possible PFO. Upon admission to the hospital patient completed her remdesivir 5 day course. Was also started on decadron on 03/18 with a dose of 6 mg daily for a total of 10 days. On 03/22 she was started on ceftriaxone 1g IV daily due to possible superimposed bacterial pneumonia which could not entirely be ruled out. She was continued on heated high flow oxygen. Continued to have exertional dyspnea. Chest x-ray on 03/20 however did show bibasilar peripheral patchy opacifications. Overall slight improvement in the opacifications throughout both lungs as compared to 01/16/2020. No pleural effusion or pneumothorax. Subjective: 03/23/20 Patient was very weak and shaky at the time of my eval. She did have brief o2 desat to low 80 however she had pulled off her high flow o2 during that time. No fever or chills. Vitals/I&O/Wt Last Vital Signs Temp 98.1 F 03/23/20 04:00 Pulse 95 03/23/20 10:00 Resp 22 H 03/23/20 10:00 BP 116/79 03/23/20 04:00 Pulse Ox 95 03/23/20 10:00 03/22/20 03/23/20 03/23/20 22:59 06:59 14:59 Intake Total 250 / 730 Output Total 600 / 900 Balance 250 / 430 -600 / -170 Physical Exam Narrative: EXAM NARRATIVE: General : Weak on highflow HEENT: Grossly unremarkable CHEST : Non-labored respiration CVS ; NSR ABD: Non-distended Ext : No edema Data : 03/23/20 03:30 03/23/20 03:30 A&P Assessment and plan (1) Acute respiratory failure with hypoxia: Status: Acute (2) COVID-19: Status: Acute (3) Weakness: Status: Acute Acute Hypoxic Respiratory Failure due to COVID-19 pneumonia - Diagnosed on 03/04 - CTA - No PE - Done prior to arrival - Completed Remdesivir 5 day course - On decadron 6 mg Po Daily - Zinc 50 mg PO daily - Started on eliquis 5 mg PO BID due to high risk for thromboembolism - DuoNeb q4hr PRN - Follow up on pro-calcitonin level - Empirically started on rocephin 1 g IV q24hr on 03/22 - Follow up on culture - low suspicion of super-imposed bacterial infection - On High- Flow - continue to wean as tolerated - Slow to improve - will likely need o2 at discharge. Acute kidney injury - Creatinine 1.27 prior to arrival - Resolved Possible PFO - Can consider outpatient ECHO with bubble study Gout - Allopurinol 100mg PO daily GI ppx - Protonix 40 mg daily DVT ppx - Eliquis 5 mg PO BID Attestations Medical Necessity Statement*: Continue hospitalization for management of ongoing hypoxia/respiratory distress. Time Spent in Patient Care: Greater than 35 minutes (>than 50% of time spent in counselling and/or direct pt care on unit). Coding Level of Care Code Acute [place] Operator for Yamilet Dixon Diagnoses Acute respiratory failure with hypoxia J96.01 COVID-19 U07.1 Weakness R53.1
[2020-03-23] MEDS: cefTRIAXone 1,000 MG in sodium chloride 0.9% (plus) 50 ML 100 MG IV (14:17)
[2020-03-24] VITALS (31 sets, daily range): BP systolic 97–141; BP diastolic 62–89; PULSE 55–103; RESP 16–21; TEMP 36.8–36.9; O2SAT 80–95
[2020-03-24 05:32] LABS: Hematocrit 38.1 % (37.0-47.0); Mean Corpuscular HGB Conc 34.1 g/dL (30.0-36.0); Mean Corpuscular Hemoglobin 30.9 pg (28.0-34.0); Mean Corpuscular Volume 90.5 fL (81-99); Mean Platelet Volume 9.5 fL (7.4-10.4); Platelet Count 404 10^3/cmm (130-400); Red Blood Count 4.21 10^6/uL (4.1-5.3); Red Cell Distribution Width 12.5 % (12.1-15.1); White Blood Count 12.2 10^3/uL (4.0-10.0)
[2020-03-24 05:54] LABS: Alanine Aminotransferase 27 U/L (0-33); Albumin Level 2.9 g/dL (3.5-5.2); Alkaline Phosphatase 63 IU/L (35-105); Anion Gap 10.6 (5-19); Aspartate Amino Transferase 22 U/L (0-32); Blood Urea Nitrogen 22 mg/dL (8-23); Calcium 9.4 mg/dL (8.5-10.5); Carbon Dioxide 28 mmol/L (22-29); Chloride 103 mmol/L (98-107); Glomerular Filtration Rate 101.6 mL/min (90-130); Glucose 209 mg/dL (65-115); Magnesium 2.2 mg/dL (1.7-2.3); Osmolality Calculated 293 mOsm/kg (285-295); Potassium 4.6 mmol/L (3.5-5.1); Sodium 137 mmol/L (136-145); Total Bilirubin 0.5 mg/dL (0.15-1.2); Total Protein 5.9 g/dL (6.6-8.7)
--- NOTE | 2020-03-24 06:25 | PC.NURSE ---
ASSUMING CARE Patient on HHFNC at 40L and 45%. Patient alert and oriented and sitting up in the chair. No needs at this time.
--- NOTE | 2020-03-24 06:25 | PC.NURSE ---
FAMILY Patient facetimed with family and behavior has appeared well. Patient has been laughing and carrying on a conversation and seems in good spirits.
--- NOTE | 2020-03-24 06:26 | PC.NURSE ---
SHIFT SUMMARY Patient remains alert and oriented. Patient remains on HHFNC at 35L and 40%. Patient has appeared to rest well this shift and has had 1175 mL of urine output.
[2020-03-24 06:58] LABS: Slide Review Slide Review Perform
[2020-03-24 06:59] LABS: Absolute Segmented Neutrophil 10.4 10/cmm (1.6-7.1); Eosinophils 0 %; Lymphocytes 11 %; Monocytes Absolute 0.1 10^3/cmm (0.1-0.6); Segmented Neutrophils 85 %; Total Cells Counted 100 (0-100)
[2020-03-24 07:00] LABS: Absolute Neutrophil 10.4 10^3/cmm (1.4-6.5); Platelet Estimate Normal (Normal)
[2020-03-24] MEDS: albuterol 8 gm MDI 2 PUFF INHALATION ×3 (07:52→19:49)
[2020-03-24] MEDS: pantoprazole DR 40 mg Tablet PO (08:55)
[2020-03-24] MEDS: apixaban 5 mg Tablet PO ×2 (08:55→17:32)
[2020-03-24] MEDS: dexamethasone 4 mg Tablet 6 MG PO (08:55)
[2020-03-24] MEDS: zinc gluconate 50 mg Tablet PO (08:55)
--- NOTE | 2020-03-24 11:38 | PC.SOCIAL ---
IMM update Pg. 2 of IMM updated with patient's over the phone who verbalized understanding.
[2020-03-24] MEDS: cefTRIAXone 1,000 MG in sodium chloride 0.9% (plus) 50 ML 100 MG IV (13:09)
--- NOTE | 2020-03-24 18:23 | P.PN_ITS ---
Subjective Subjective: Interval history: 59-year-old female with a past medical history significant for gout, gastroesophageal reflux disease, vitamin-D deficiency, hypertension and COVID-19 infection diagnosed on 03/04 who presented to the hospital with respiratory distress. This was associated with fever, muscle aches, poor appetitie and generalized weakness. Laboratory workup on arrival showed a WBC of 2.4, hemoglobin of 13.5, hematocrit of 40.5 and platelet count 222. D-dimer was elevated at 1.25. Sodium 142, potassium 4.1, chloride 108, bicarb 24, BUN 17 and creatinine of 0.7. Glucose of 137. AST of 73. CRP of 104.5 and pro-calcitonin of 0.22. Chest-xray performed at outside facility prior to transfer had shown bilateral groundglass opacities. Also did have a CTA chest PE protocol which did not show PE however per H&P did show bilateral multi-focal pneumonia consistent with covid-19 infection. 03/18 ECHO was done which showed pEF with grade 1 Diastolic dysfunction. In yara tion she was noted to have flow turbulence in the intra-atrial septum suggestive of possible PFO. Upon admission to the hospital patient completed her remdesivir 5 day course. Was also started on decadron on 03/18 with a dose of 6 mg daily for a total of 10 days. On 03/22 she was started on ceftriaxone 1g IV daily due to possible superimposed bacterial pneumonia which could not entirely be ruled out. She was continued on heated high flow oxygen. Continued to have exertional dyspnea. Chest x-ray on 03/20 however did show bibasilar peripheral patchy opacifications. Overall slight improvement in the opacifications throughout both lungs as compared to 01/16/2020. No pleural effusion or pneumothorax. Subjective: 03/23/20 Patient was very weak and shaky at the time of my eval. She did have brief o2 desat to low 80 however she had pulled off her high flow o2 during that time. No fever or chills. 03/24/2020 Patient improved overnight. Was more alert and ambulating. Oxygen was being weaned. She was on nasal cannula at the time of my evaluation. Medications: Reviewed: Yes Vitals/I&O/Wt Last Vital Signs Temp 98.4 F 03/24/20 19:00 Pulse 94 03/24/20 20:00 Resp 16 03/24/20 19:49 BP 107/63 03/24/20 20:00 Pulse Ox 93 03/24/20 20:00 03/24/20 03/24/20 03/24/20 06:59 14:59 22:59 Intake Total 800 / 800 300 / 1100 Output Total 1175 / 2075 750 / 750 450 / 1200 Balance -1175 / -875 50 / 50 -150 / -100 Physical Exam Narrative: EXAM NARRATIVE: General : Alert on nasal cannula HEENT: Grossly unremarkable CHEST : Non-labored respiration CVS ; NSR ABD: Non-distended Ext : No edema Data : 03/24/20 05:15 03/24/20 05:15 A&P Assessment and plan (1) Acute respiratory failure with hypoxia: Status: Acute (2) COVID-19: Status: Acute (3) Weakness: Status: Acute Acute Hypoxic Respiratory Failure due to COVID-19 pneumonia - Diagnosed on 03/04 - CTA - No PE - Done prior to arrival - Completed Remdesivir 5 day course - On decadron 6 mg Po Daily - Zinc 50 mg PO daily - Started on eliquis 5 mg PO BID due to high risk for thromboembolism - DuoNeb q4hr PRN - Follow up on pro-calcitonin level - Empirically started on rocephin 1 g IV q24hr on 03/22 - Follow up on culture - low suspicion of super-imposed bacterial infection - Wean to nasal cannula - Will assess ambulatory O2 at discharge anticipated likely needing home O2 Acute kidney injury - Creatinine 1.27 prior to arrival - Resolved Possible PFO - Can consider outpatient ECHO with bubble study Gout - Allopurinol 100mg PO daily GI ppx - Protonix 40 mg daily DVT ppx - Eliquis 5 mg PO BID Attestations Medical Necessity Statement*: will require further hospitalization for management of hypoxic respiratory failure Time Spent in Patient Care: Greater than 35 minutes Coding Level of Care Code Acute Flow Coordinator for [facility] Diagnoses Acute respiratory failure with hypoxia J96.01 COVID-19 U07.1 Weakness R53.1
[2020-03-25] VITALS (25 sets, daily range): BP systolic 95–137; BP diastolic 57–91; PULSE 48–104; RESP 16–27; TEMP 36.8–37.3; O2SAT 87–98
[2020-03-25 05:48] LABS: Basophils % 0.3 %; Hematocrit 38.6 % (37.0-47.0); Hemoglobin 12.9 g/dL (11.5-15.3); Lymphocytes # 1.3 10^3/uL (0.8-4.8); Lymphocytes % 9.7 %; Mean Corpuscular HGB Conc 33.4 g/dL (30.0-36.0); Mean Corpuscular Hemoglobin 30.8 pg (28.0-34.0); Mean Corpuscular Volume 92.1 fL (81-99); Mean Platelet Volume 9.5 fL (7.4-10.4); Monocytes # 1.1 10^3/uL (0.2-0.9); Monocytes % 7.6 %; Neutrophils # 10.29 10^3/uL (1.8-7.7); Neutrophils % 74.8 %; Nucleated Red Blood Cells % 0 %; Platelet Count 383 10^3/cmm (130-400); Red Blood Count 4.19 10^6/uL (4.1-5.3); Red Cell Distribution Width 12.9 % (12.1-15.1); White Blood Count 13.8 10^3/uL (4.0-10.0)
[2020-03-25 06:13] LABS: Alanine Aminotransferase 27 U/L (0-33); Albumin Level 3.1 g/dL (3.5-5.2); Alkaline Phosphatase 60 IU/L (35-105); Anion Gap 13.5 (5-19); Aspartate Amino Transferase 17 U/L (0-32); Blood Urea Nitrogen 20 mg/dL (8-23); Calcium 9.2 mg/dL (8.5-10.5); Carbon Dioxide 26 mmol/L (22-29); Chloride 104 mmol/L (98-107); Globulin 2.9 g/dL (1.3-4.6); Glomerular Filtration Rate 101.3 mL/min (90-130); Glucose 161 mg/dL (65-115); Magnesium 2.2 mg/dL (1.7-2.3); Osmolality Calculated 294 mOsm/kg (285-295); Potassium 4.5 mmol/L (3.5-5.1); Sodium 139 mmol/L (136-145); Total Bilirubin 0.4 mg/dL (0.15-1.2)
[2020-03-25 06:48] LABS: Slide Review Slide Review Perform
[2020-03-25] MEDS: pantoprazole DR 40 mg Tablet PO (08:54)
[2020-03-25] MEDS: dexamethasone 4 mg Tablet 6 MG PO (08:54)
[2020-03-25] MEDS: zinc gluconate 50 mg Tablet PO (08:54)
[2020-03-25] MEDS: apixaban 5 mg Tablet PO ×2 (08:54→17:09)
--- NOTE | 2020-03-25 13:19 | PM.PN ---
Subjective Subjective: Interval history: 59-year-old female with a past medical history significant for gout, gastroesophageal reflux disease, vitamin-D deficiency, hypertension and COVID-19 infection diagnosed on 03/04 who presented to the hospital with respiratory distress. This was associated with fever, muscle aches, poor appetitie and generalized weakness. Laboratory workup on arrival showed a WBC of 2.4, hemoglobin of 13.5, hematocrit of 40.5 and platelet count 222. D-dimer was elevated at 1.25. Sodium 142, potassium 4.1, chloride 108, bicarb 24, BUN 17 and creatinine of 0.7. Glucose of 137. AST of 73. CRP of 104.5 and pro-calcitonin of 0.22. Chest-xray performed at outside facility prior to transfer had shown bilateral groundglass opacities. Also did have a CTA chest PE protocol which did not show PE however per H&P did show bilateral multi-focal pneumonia consister with covid-19 infection. 03/18 ECHO was done which showed pEF with grade 1 Diastolic dysfunction. In addition she was noted to have flow turnulence in the intra-atrial septum suggestive of possible PFO. Upon admission to the hospital jessica completed her remdesivir 5 day course. Was also started on decadron on 03/18 with a dose of 6 mg daily for a total of 10 days. Chest x-ray on 03/20 however did show bibasilar peripheral patchy opacifications. Overall slight improvement in the opacifications throughout both lungs as compared to 01/16/2020. No pleural effusion or pneumothorax. On 03/22 she was started on ceftriaxone 1g IV daily due to possible superimposed bacterial pneumonia which could not entirely be ruled out. Patient was initially requiring high-flow oxygen however this started to improve prior to discharge. She was eventually transitioned to nasal cannula. Requirements had decreased to around 4 L via nasal cannula. She was more alert and wanting to ambulate. Subjective 03/25/2020 No new clinical events overnight. Patient states she feels great and is wanting to be discharged. O2 requirements had decreased to 6 L in morning however throughout the day decreased to 4 L. was continued to have dyspnea on exertion however. No fever, chills, nausea vomiting. No chest pain or new complaints. Vitals/I&O/Wt Last Vital Signs Temp 98.4 F 03/25/20 08:00 Pulse 75 03/25/20 10:00 Resp 17 03/25/20 10:00 BP 124/76 03/25/20 10:00 Pulse Ox 95 03/25/20 10:00 03/24/20 03/25/20 03/25/20 22:59 06:59 14:59 Intake Total 750 / 1550 150 / 1700 350 / 350 Output Total 450 / 1200 0 / 0 Balance 300 / 350 150 / 500 350 / 350 Physical Exam Narrative: EXAM NARRATIVE: General : Alert on nasal cannula HEENT: Grossly unremarkable CHEST : Non-labored respiration CVS ; NSR ABD: Non-distended Ext : No edema Data : 03/25/20 04:15 03/25/20 04:15 A&P Assessment and plan (1) Acute respiratory failure with hypoxia: Status: Acute (2) COVID-19: Status: Acute (3) Weakness: Status: Acute Additional A&P Information Acute Hypoxic Respiratory Failure due to COVID-19 pneumonia - Diagnosed on 03/04 - CTA - No PE - Done prior to arrival - Completed Remdesivir 5 day course - On decadron 6 mg PO Daily - until 03/27 - Zinc 50 mg PO daily - Started on eliquis 5 mg PO BID due to high risk for thromboembolism - Will not continue after discharge. - DuoNeb q4hr PRN - Pro-calcitonin 0.22 on 03/18 - Empirically started on rocephin 1 g IV q24hr on 03/22 - Follow up on culture - low suspicion of super-imposed bacterial infection - Will d/c abx and monitor off - Home o2 eval - If requiring less than 5L at rest and with exertion will consider discharge home on Acute kidney injury - Creatinine 1.27 prior to arrival - Resolved Possible PFO - Can consider outpatient ECHO with bubble study - Will arrange outpatient cardiology follow up Gout - Allopurinol 100mg PO daily GI ppx - Protonix 40 mg daily DVT ppx - Eliquis 5 mg PO BID Attestations Medical Necessity Statement*: Will require ongoing hospitalization for management of COVID-19 related respiratory failure Time Spent in Patient Care: Greater than 35 minutes (>than 50% of time spent in counselling and/or direct pt care on unit). Critical Care Time: Critical Care Time (min): 40 Coding Level of Care Code Acute Therapy Assistant for Yamilet Dixon Diagnoses Acute respiratory failure with hypoxia J96.01 COVID-19 U07.1 Weakness R53.1
--- NOTE | 2020-03-25 20:00 | PC.NURSE ---
Patient found to have SPO2 down at 76% after ambulating up to beside comode and back to chair. RN placed 2L NC on patient. SPO2 returned to 90%. RN educated patient on need to use call light for assistance in ambulation and overall patient needs.
[2020-03-26] VITALS (28 sets, daily range): BP systolic 86–132; BP diastolic 50–83; PULSE 49–96; RESP 11–22; TEMP 36.6–37.2; O2SAT 86–97
[2020-03-26] MEDS: albuterol 8 gm MDI 2 PUFF INHALATION ×2 (10:20→16:03)
[2020-03-26] MEDS: apixaban 5 mg Tablet PO ×2 (10:24→18:35)
[2020-03-26] MEDS: pantoprazole DR 40 mg Tablet PO (10:24)
[2020-03-26] MEDS: dexamethasone 4 mg Tablet 6 MG PO (10:24)
[2020-03-26] MEDS: allopurinol 100 mg Tablet PO (10:24)
[2020-03-26] MEDS: zinc gluconate 50 mg Tablet PO (10:24)
--- NOTE | 2020-03-26 16:26 | PM.PN ---
Subjective Subjective: Interval history: 59-year-old female with a past medical history significant for gout, gastroesophageal reflux disease, vitamin-D deficiency, hypertension and COVID-19 infection diagnosed on 03/04 who presented to the hospital with respiratory distress. This was associated with fever, muscle aches, poor appetitie and generalized weakness. Laboratory workup on arrival showed a WBC of 2.4, hemoglobin of 13.5, hematocrit of 40.5 and platelet count 222. D-dimer was elevated at 1.25. Sodium 142, potassium 4.1, chloride 108, bicarb 24, BUN 17 and creatinine of 0.7. Glucose of 137. AST of 73. CRP of 104.5 and pro-calcitonin of 0.22. Chest-xray performed at outside facility prior to transfer had shown bilateral groundglass opacities. Also did have a CTA chest PE protocol which did not show PE however per H&P did show bilateral multi-focal pneumonia consister with covid-19 infection. 03/18 ECHO was done which showed pEF with grade 1 Diastolic dysfunction. In addition she was noted to have flow turnulence in the intra-atrial septum suggestive of possible PFO. Upon admission to the hospital jessica completed her remdesivir 5 day course. Was also started on decadron on 03/18 with a dose of 6 mg daily for a total of 10 days. Chest x-ray on 03/20 however did show bibasilar peripheral patchy opacifications. Overall slight improvement in the opacifications throughout both lungs as compared to 01/16/2020. No pleural effusion or pneumothorax. On 03/22 she was started on ceftriaxone 1g IV daily due to possible superimposed bacterial pneumonia which could not entirely be ruled out. Patient was initially requiring high-flow oxygen however this started to improve prior to discharge. She was eventually transitioned to nasal cannula. Requirements had decreased to around 4 L via nasal cannula. She was more alert and wanting to ambulate. Subjective 03/25/2020 No new clinical events overnight. Patient states she feels great and is wanting to be discharged. O2 requirements had decreased to 6 L in morning however throughout the day decreased to 4 L. was continued to have dyspnea on exertion however. No fever, chills, nausea vomiting. No chest pain or new complaints. 03/26/2020 Patient was continued to require supplemental oxygen. Clinically she feels better. Medications: Reviewed: Yes Vitals/I&O/Wt Last Vital Signs Temp 97.9 F 03/26/20 09:00 Pulse 95 03/26/20 16:07 Resp 19 H 03/26/20 16:07 BP 103/62 03/26/20 14:00 Pulse Ox 92 03/26/20 16:07 03/26/20 03/26/20 03/26/20 06:59 14:59 22:59 Intake Total 150 / 1420 1160 / 1160 Balance 150 / 1020 1160 / 1160 Physical Exam Narrative: EXAM NARRATIVE: General : Alert on nasal cannula HEENT: Grossly unremarkable CHEST : Non-labored respiration CVS ; NSR ABD: Non-distended Ext : No edema Data : 03/25/20 04:15 03/25/20 04:15 A&P Assessment and plan (1) Acute respiratory failure with hypoxia: Status: Acute (2) COVID-19: Status: Acute (3) Weakness: Status: Acute Acute Hypoxic Respiratory Failure due to COVID-19 pneumonia - Diagnosed on 03/04 - CTA - No PE - Done prior to arrival - Completed Remdesivir 5 day course - On decadron 6 mg Po Daily - Zinc 50 mg PO daily - Started on eliquis 5 mg PO BID due to high risk for thromboembolism - DuoNeb q4hr PRN - Follow up on pro-calcitonin level - Empirically started on rocephin 1 g IV q24hr on 03/22 - Follow up on culture - low suspicion of super-imposed bacterial infection - Patient was requiring 6 L of O2 with ambulation and still oxygen saturations remain in high 80s. - Will continue hospitalization Acute kidney injury - Creatinine 1.27 prior to arrival - Resolved Possible PFO - Can consider outpatient ECHO with bubble study Gout - Allopurinol 100mg PO daily GI ppx - Protonix 40 mg daily DVT ppx - Eliquis 5 mg PO BID Attestations Medical Necessity Statement*: will require continued hospitalization for management of hypoxic respiratory failure Time Spent in Patient Care: Greater than 35 minutes (>than 50% of time spent in counselling and/or direct pt care on unit). Coding Level of Care Code Acute Lagging Machine Operator for Yamilet Dixon Diagnoses Acute respiratory failure with hypoxia J96.01 COVID-19 U07.1 Weakness R53.1
[2020-03-27] VITALS (19 sets, daily range): BP systolic 96–135; BP diastolic 47–84; PULSE 46–109; RESP 12–22; TEMP 36.1–36.2; O2SAT 81–98
[2020-03-27] MEDS: albuterol 8 gm MDI 2 PUFF INHALATION (09:23)
[2020-03-27] MEDS: apixaban 5 mg Tablet PO (09:34)
[2020-03-27] MEDS: allopurinol 100 mg Tablet PO (09:34)
[2020-03-27] MEDS: zinc gluconate 50 mg Tablet PO (09:35)
[2020-03-27] MEDS: dexamethasone 4 mg Tablet 6 MG PO (09:35)
[2020-03-27] MEDS: pantoprazole DR 40 mg Tablet PO (09:35)
--- NOTE | 2020-03-27 15:34 | P.PN_ITS ---
Subjective Subjective: Interval history: 59-year-old female with a past medical history significant for gout, gastroesophageal reflux disease, vitamin-D deficiency, hypertension and COVID-19 infection diagnosed on 03/04 who presented to the hospital with respiratory distress. This was associated with fever, muscle aches, poor appetitie and generalized weakness. Laboratory workup on arrival showed a WBC of 2.4, hemoglobin of 13.5, hematocrit of 40.5 and platelet count 222. D-dimer was elevated at 1.25. Sodium 142, potassium 4.1, chloride 108, bicarb 24, BUN 17 and creatinine of 0.7. Glucose of 137. AST of 73. CRP of 104.5 and pro-calcitonin of 0.22. Chest-xray performed at outside facility prior to transfer had shown bilateral groundglass opacities. Also did have a CTA chest PE protocol which did not show PE however per H&P did show bilateral multi-focal pneumonia consister with covid-19 infection. 03/18 ECHO was done which showed pEF with grade 1 Diastolic dysfunction. In addition she was noted to have flow turnulence in the intra-atrial septum suggestive of possible PFO. Upon admission to the hospital jessica completed her remdesivir 5 day course. Was also started on decadron on 03/18 with a dose of 6 mg daily for a total of 10 days. Chest x-ray on 03/20 however did show bibasilar peripheral patchy opacifications. Overall slight improvement in the opacifications throughout both lungs as compared to 01/16/2020. No pleural effusion or pneumothorax. On 03/22 she was started on ceftriaxone 1g IV daily due to possible superimposed bacterial pneumonia which could not entirely be ruled out. Patient was initially requiring high-flow oxygen however this started to improve prior to discharge. She was eventually transitioned to nasal cannula. Requirements had decreased to around 4 L via nasal cannula. She was more alert and wanting to ambulate. Subjective 03/25/2020 No new clinical events overnight. Patient states she feels great and is wanting to be discharged. O2 requirements had decreased to 6 L in morning however throughout the day decreased to 4 L. was continued to have dyspnea on exertion however. No fever, chills, nausea vomiting. No chest pain or new complaints. 03/26/2020 Patient was continued to require supplemental oxygen. Clinically she feels better. 03/27 Remained on 4L of NC. No fever,chills, nausea or vomiting. Medications: Reviewed: Yes Vitals/I&O/Wt Last Vital Signs Temp 96.9 F L 03/27/20 14:00 Pulse 82 03/27/20 14:00 Resp 22 H 03/27/20 14:00 BP 115/69 03/27/20 14:00 Pulse Ox 98 03/27/20 14:00 03/27/20 03/27/20 03/27/20 06:59 14:59 22:59 Intake Total 720 / 720 Output Total 500 / 700 Balance -500 / 1160 720 / 720 Physical Exam Narrative: EXAM NARRATIVE: General : Alert on nasal cannula HEENT: Grossly unremarkable CHEST : Non-labored respiration CVS ; NSR ABD: Non-distended Ext : No edema Data : 03/25/20 04:15 03/25/20 04:15 A&P Assessment and plan (1) Acute respiratory failure with hypoxia: Status: Acute (2) COVID-19: Status: Acute (3) Weakness: Status: Acute Acute Hypoxic Respiratory Failure due to COVID-19 pneumonia - Diagnosed on 03/04 - CTA - No PE - Done prior to arrival - Completed Remdesivir 5 day course - On decadron 6 mg Po Daily - Zinc 50 mg PO daily - Started on eliquis 5 mg PO BID due to high risk for thromboembolism - DuoNeb q4hr PRN - Follow up on pro-calcitonin level - Empirically started on rocephin 1 g IV q24hr on 03/22 - Follow up on culture - low suspicion of super-imposed bacterial infection - Patient was requiring 6 L of O2 with ambulation and still oxygen saturations remain in high 80s. - Will continue hospitalization Acute kidney injury - Creatinine 1.27 prior to arrival - Resolved Possible PFO - Can consider outpatient ECHO with bubble study Gout - Allopurinol 100mg PO daily GI ppx - Protonix 40 mg daily DVT ppx - Eliquis 5 mg PO BID Additional A&P Information Acute Hypoxic Respiratory Failure due to COVID-19 pneumonia - Diagnosed on 03/04 - CTA - No PE - Done prior to arrival - Completed Remdesivir 5 day course - On decadron 6 mg PO Daily will continue over 10 days until discharge - Zinc 50 mg PO daily - On eliquis 5 mg PO BID due to high risk for thromboembolism - Will not continue after discharge. - DuoNeb q4hr PRN - Pro-calcitonin 0.22 on 03/18 - Empirically started on rocephin 1 g IV q24hr on 03/22 - Follow up on culture - low suspicion of super-imposed bacterial infection - Will d/c abx and monitor off - Home o2 eval again today noted sig desaturation - Slow to improve - May require additional 1-2 days in hospital Acute kidney injury - Creatinine 1.27 prior to arrival - Resolved Possible PFO - Can consider outpatient ECHO with bubble study - Will arrange outpatient cardiology follow up Gout - Allopurinol 100mg PO daily GI ppx - Protonix 40 mg daily DVT ppx - Eliquis 5 mg PO BID Attestations Medical Necessity Statement*: continue hospitalization due to respiratory failure, covid 19 pneumonia Time Spent in Patient Care: Greater than 35 minutes (>than 50% of time spent in counselling and/or direct pt care on unit) . Coding Level of Care Code Acute Paramedic Supervisor for Yamilet Dixon Diagnoses Acute respiratory failure with hypoxia J96.01 COVID-19 U07.1 Weakness R53.1
--- NOTE | 2020-03-27 20:17 | P.DS_ITS ---
Discharge Providers Date of Admission: 03/17/20 22:13 Date of Discharge: March 27, 2020 Attending Provider at Admission: Angela Madrigal MD Attending Provider at Discharge: Criss Pinedo Primary Care Provider: Matthew Hernandez DO Diagnoses at Discharge Discharge Diagnosis (1) Acute respiratory failure with hypoxia: Status: Acute (2) COVID-19: Status: Acute (3) Weakness: Status: Acute Reason for Visit Reason for Visit: covid pneumonia Hospital Course Hospital Course 59-year-old female with a past medical history significant for gout, gastroesophageal reflux disease, vitamin-D deficiency, hypertension and COVID-19 infection diagnosed on 03/04 who presented to the hospital with respiratory distress. This was associated with fever, muscle aches, poor appetite and generalized weakness. Laboratory workup on arrival showed a WBC of 2.4, hemoglobin of 13.5, hematocrit of 40.5 and platelet count 222. D-dimer was elevated at 1.25. Sodium 142, potassium 4.1, chloride 108, bicarb 24, BUN 17 and creatinine of 0.7. Glucose of 137. AST of 73. CRP of 104.5 and pro- calcitonin of 0.22. Chest-xray performed at outside facility prior to transfer had shown bilateral groundglass opacities. Also did have a CTA chest PE protocol which did not show PE however per H&P did show bilateral multi-focal pneumonia consistent with covid-19 infection. 03/18 ECHO was done which showed pEF with grade 1 Diastolic dysfunction. In addition she was noted to have flow turbulence in the intra-atrial septum suggestive of possible PFO. Upon admission to the hospital jessica completed her remdesivir 5 day course. Was also started on decadron on 03/18 with a dose of 6 mg daily for a total of 10 days. Chest x-ray on 03/20 however did show bibasilar peripheral patchy opacifications. Overall slight improvement in the opacifications throughout both lungs as compared to 01/16/2020. No pleural effusion or pneumothorax. On 03/22 she was started on ceftriaxone 1g IV daily due to possible superimposed bacterial pneumonia which could not entirely be ruled out.No cultures were drawn. Procalcitonin was found to be 0.22. Antibiotics were discontinued. Patient was initially requiring high-flow oxygen however this started to improve prior to discharge. She was eventually transitioned to nasal cannula. Requirements had decreased to around 5 liters with oxygen pendulum. Patient had over improved and was tolerating oral intake ambulating with out any visible respiratory distress. She was wanting to be discharged. Advised to return to hospital if any recurrence of fever or respiratory distress. Physical Exam Narrative: EXAM NARRATIVE: General : Alert on nasal cannula HEENT: Grossly unremarkable CHEST : Non-labored respiration CVS ; NSR ABD: Non-distended Ext : No edema Discharge Data Data Completed and Pending: Completed Studies During Hospitalization Category Date Time Status XR chest 1V lakshmi ble [id number] Routine Exams 03/20/20 07:31 Completed CV echo complete* [id number] Routine Ultrasound 03/18/20 00:35 Completed Vitals: Last Vital Signs Temp 97.2 F L 03/27/20 19:22 Pulse 98 03/27/20 20:00 Resp 19 H 03/27/20 20:00 BP 135/84 03/27/20 20:00 Pulse Ox 94 03/27/20 20:00 Discharge Plan Discharge Patient Disposition: Home Condition: Stable Prescriptions: New zinc gluconate 50 mg Tablet 50 mg PO DAILY Qty: 30 RF: 0 Continued omeprazole 40 mg capsule,delayed release(DR/EC) 40 mg PO DAILY RF: 0 allopurinol 100 mg tablet 300 mg PO DAILY RF: 0 lisinopril 20 mg tablet 20 mg PO DAILY RF: 0 Vitamin D3 100 mcg (4,000 unit) Capsule 100 mcg PO DAILY RF: 0 Discharge Orders: Discharge Order (Routine); Ordered 03/27/20 Ordered By: Criss Pinedo Other Ambulatory Orders: DME: Oxygen (Order) Location: None Selected Ordered By: Criss Pinedo Referrals: Susan Garcia NP [Occupational Therapist] - 4-7 days Candida Tenorio MD [Physician] - 2 weeks Discharge Diet: Usual diet Discharge Activity: Increase activity as tolerated Activity Restrictions/Additional Instructions: Return to hospital if any worsening respiratory distress or fevers. Patient is to make follow up appointments with listed providers. Home oxygen is provided by [facility] of the [facility] [employer] (HOME). Discharge Attestations Time Spent in Discharge Care*: greater than 30 min Specific Discharge Activities: educating patient, discussing with pcp/other providers, discussing with leather case finisher/social workers/dc planners, documenting/other paperwork and evaluating patient/reviewing data Status at Discharge: Cognitive status at discharge: cognitively intact , Behavioral status at discharge: cooperative , Functional status at discharge: independent ambulation Overall status at discharge: patient is not back to baseline Quality Metrics Clinical Quality Measures During this hospital stay, did patient experience: None Coding Level of Care Code Acute Putaway Driver for g Fwd Diagnoses Acute respiratory failure with hypoxia J96.01 COVID-19 U07.1 Weakness R53.1
--- NOTE | 2020-03-27 22:39 | PC.NURSE ---
DISCHARGE NOTE Suleiman from [facility] came to unit to educate patient on home oxygen concentrator and equipment. Patient escorted out by nurse and electronic security technician and met at vehicle. Suleiman helped family load equipment into car and nurse helped patient into vehicle and ensured oxygen was on and flowing. Discharge instructions gone over with patient before leaving unit and with before leaving facility. Patient is excited and ready to go home she states.
== END 2020-03-27 20:42 | disposition home or self-care (01) | DRG 177 ==
PROVIDERS: Internal Medicine; Admitting Provider Internal Medicine; Visit Provider Hospitalist
DX: U07.1 COVID-19 (principal); J12.89 Other viral pneumonia; J96.01 Acute respiratory failure with hypoxia; N17.9 Acute kidney failure, unspecified; E86.0 Dehydration; M79.7 Fibromyalgia; I10 Essential (primary) hypertension; K21.9 Gastro-esophageal reflux disease without esophagitis; M10.9 Gout, unspecified; E55.9 Vitamin D deficiency, unspecified
CPT/HCPCS: 12345; 36415; 36600; 71045; 80051; 80053; 82330; 82805; 83605; 83615; 83735; 84145; 84484; 85007; 85025; 85378; 86140; 93306; 94640; 96372; 97110; 97161; 97530; J0696; J1644; J3535; J8540

== ENCOUNTER → 2020-10-13 12:30 | Outpatient (BNVA) | payer MEDICARE, SELFPAY | PROVIDERS: Visit Provider Nurse Practitioner Family | DX: M25.552 Pain in left hip (principal) | CPT/HCPCS: 73502 ==

== ENCOUNTER → 2021-01-07 16:40 | Outpatient (BNVA) | payer MEDICARE, SELFPAY | PROVIDERS: Visit Provider Emergency Medicine | DX: R53.83 Other fatigue (principal); Z79.1 Long term (current) use of non-steroidal anti-inflammatories (NSAID); M10.9 Gout, unspecified; Q21.1 Atrial septal defect; M79.7 Fibromyalgia; I10 Essential (primary) hypertension | CPT/HCPCS: 80053; 83880; 84550; 85025 ==

== ENCOUNTER → 2021-12-23 13:50 | Outpatient (BNVA) | payer MEDICARE, SELFPAY | PROVIDERS: PCP Family Medicine; Visit Provider Family Medicine | DX: I10 Essential (primary) hypertension (principal); M19.90 Unspecified osteoarthritis, unspecified site; K21.9 Gastro-esophageal reflux disease without esophagitis; M10.9 Gout, unspecified; F51.01 Primary insomnia; F41.1 Generalized anxiety disorder; Z23 Encounter for immunization; M1A.09X0 Idiopathic chronic gout, multiple sites, without tophus (tophi); J30.2 Other seasonal allergic rhinitis | CPT/HCPCS: 80053; 80061 ==

== ENCOUNTER → 2022-06-09 15:13 | Outpatient (BNVA) | payer MEDICARE, SELFPAY | PROVIDERS: PCP Family Medicine; Referring Provider Nurse Practitioner Family; Visit Provider Dermatology | DX: F32.A Depression, unspecified (principal); L60.8 Other nail disorders | CPT/HCPCS: 88304; 88311; 88312 ==

== ENCOUNTER 2022-06-09 16:13 | Outpatient (CLI) | payer MEDICARE, SELFPAY ==
[2022-06-09 17:38] LABS: Vitamin B12 397 pg/mL (232-1245)
== END 2022-06-09 16:14 | disposition home or self-care (01) ==
LOC: LAB 16:17
PROVIDERS: PCP Family Medicine; Visit Provider Dermatology
DX: F32.A Depression, unspecified (principal); Z79.899 Other long term (current) drug therapy
CPT/HCPCS: 36415; 82607

== ENCOUNTER → 2022-06-30 10:34 | Outpatient (BNVA) | payer MEDICARE, SELFPAY | PROVIDERS: PCP Family Medicine; Visit Provider Emergency Medicine | DX: M25.561 Pain in right knee (principal) | CPT/HCPCS: 73562 ==

== ENCOUNTER 2022-12-22 13:08 | Outpatient (CLI) | payer MEDICARE, SELFPAY ==
--- NOTE | 2022-12-22 13:34 | MM_ITS ---
WS: [id number] BILATERAL SCREENING DIGITAL TOMOSYNTHESIS MAMMOGRAM WITH CAD HISTORY: Z00.00 - Encounter for general adult medical examination ... COMPARISON: None available. Bilateral CC and MLO views with tomosynthesis and synthetic mammography submitted. Computer aided det ection analyzed. Breast composition: The breasts are heterogeneously dense, which may obscure small masses. No suspici ous masses, microcalcifications or architectural distortion. Benign calcifications in each breast. IMPRESSION: MM/[place] [id number] BI-RADS: 2-Benign FOLLOW UP: 1 Year Follow-up
== END 2022-12-22 13:09 | disposition home or self-care (01) ==
PROVIDERS: PCP Family Medicine; Visit Provider Family Medicine
DX: Z12.31 Encounter for screening mammogram for malignant neoplasm of breast (principal)
CPT/HCPCS: 77063; 77067

== ENCOUNTER → 2023-01-30 15:55 | Outpatient (BNVA) | payer MEDICARE, SELFPAY | PROVIDERS: PCP Family Medicine; Visit Provider Family Medicine | DX: I10 Essential (primary) hypertension; Z13.220 Encounter for screening for lipoid disorders; Z13.6 Encounter for screening for cardiovascular disorders; Z51.81 Encounter for therapeutic drug level monitoring | CPT/HCPCS: 80053; 80061 ==

== ENCOUNTER 2024-01-04 09:59 | Outpatient (CLI) | payer MEDICARE, SELFPAY ==
--- NOTE | 2024-01-04 10:00 | MM_ITS ---
WS: [id number] BILATERAL SCREENING DIGITAL TOMOSYNTHESIS MAMMOGRAM WITH CAD HISTORY: SCREENING COMPARISON: 12/22/2022 Bilateral CC and MLO views with tomosynthesis and synthetic mammography submitted. Computer aided det ection analyzed. Breast composition: The breasts are heterogeneously dense, which may obscure small masses. No suspici ous masses, microcalcifications or architectural distortion. Numerous benign scattered calcifications in each breast. MM/MM scr tomosynthesis [id number] IMPRESSION: BI-RADS: 2 - Benign FOLLOW UP: 1 Year Follow-up
== END 2024-01-04 10:00 | disposition home or self-care (01) ==
LOC: MOBLMAM 10:04
PROVIDERS: PCP Family Medicine; Visit Provider Family Medicine
DX: Z12.31 Encounter for screening mammogram for malignant neoplasm of breast (principal); R92.333 Mammographic heterogeneous density, bilateral breasts; R92.1 Mammographic calcification found on diagnostic imaging of breast
CPT/HCPCS: 77063; 77067

== ENCOUNTER 2024-08-01 14:46 | Outpatient (CLI) | payer MEDICARE, SELFPAY ==
--- NOTE | 2024-08-01 14:52 | XR_ITS ---
WS: [id number] Lumbar spine, 3 views, 08/01/2024 Clinical Data: M54.30 - Sciatica, unspecified side Comparison: None. Findings: There is 0.5 cm anterior subluxation of L4 on L5. There is loss of inferior cortical height of the L2 vertebral body. There is degenerative disc narrowing at L4-L5 and L5-S1. Osteoporosis and osteoarthritis are present at all lumbar levels. There is facet joint arthritis at L4-L5 and L5-S1. There is a dextroscoliosis. The transverse processes and SI joints are normal. There are cholecystectomy clips in the right upper quadrant. XR/XR lumbar spine 2-3V* [id number] Impression: 1. Anterior subluxation of L4 and L5 with possible L2 compression fracture and loss of anterior cortical height. 2. Degenerative disc narrowing at multiple levels along with osteoporosis and o steoarthritis. 3. Multilevel facet joint arthritis and dextroscoliosis.
== END 2024-08-01 14:47 | disposition home or self-care (01) ==
PROVIDERS: PCP Family Medicine; Visit Provider Family Medicine
DX: M54.30 Sciatica, unspecified side (principal); R93.7 Abnormal findings on diagnostic imaging of other parts of musculoskeletal system; M51.369 Other intervertebral disc degeneration, lumbar region without mention of lumbar back pain or lower extremity pain; M81.0 Age-related osteoporosis without current pathological fracture; M47.896 Other spondylosis, lumbar region; M41.86 Other forms of scoliosis, lumbar region; Z90.49 Acquired absence of other specified parts of digestive tract; M51.379 Other intervertebral disc degeneration, lumbosacral region without mention of lumbar back pain or lower extremity pain; M47.897 Other spondylosis, lumbosacral region
CPT/HCPCS: 72100

== ENCOUNTER → 2024-08-06 09:51 | Outpatient (BNVA) | payer MEDICARE, SELFPAY | PROVIDERS: PCP Family Medicine; Visit Provider Family Medicine | DX: I10 Essential (primary) hypertension (principal) | CPT/HCPCS: 80053; 80061; 85025 ==

== ENCOUNTER → 2024-08-07 14:02 | Outpatient (BNVA) | payer MEDICARE, SELFPAY | PROVIDERS: PCP Family Medicine; Visit Provider Family Medicine | DX: M25.552 Pain in left hip (principal); M25.551 Pain in right hip | CPT/HCPCS: 73502 ==

== ENCOUNTER → 2024-08-20 11:00 | Outpatient (BNVA) | payer MEDICARE, SELFPAY | PROVIDERS: PCP Family Medicine; Referring Provider Family Medicine; Visit Provider Anesthesiology Pain Medicine | DX: M54.9 Dorsalgia, unspecified (principal); M51.16 Intervertebral disc disorders with radiculopathy, lumbar region; M47.816 Spondylosis without myelopathy or radiculopathy, lumbar region | CPT/HCPCS: 99204 ==

== ENCOUNTER 2024-09-01 05:00 | Outpatient (RCR) | payer MEDICARE, SELFPAY | END 2024-09-30 23:59 | disposition home or self-care (01) | LOC: MPT 05:00 | PROVIDERS: PCP Family Medicine; Visit Provider Anesthesiology Pain Medicine | DX: M54.59 Other low back pain (principal) | CPT/HCPCS: 97110; 97140; 97162; G0283 ==

== ENCOUNTER 2024-09-04 12:44 | Outpatient (CLI) | payer MEDICARE, SELFPAY ==
--- NOTE | 2024-09-04 13:00 | MR_ITS ---
WS: [id number] MRI LUMBAR SPINE NONCONTRAST HISTORY: M54.16 - Radiculopathy, lumbar region COMPARISON: None available. TECHNIQUE: Sagittal and axial multisequence imaging is submitted. Mild RIGHT curvature lumbar spine. No acute fracture or marrow edema. L2 mild anterior wedging with a Schmorl's node defect along the inferior endplate. Mild anterior wedging of L4. Disc spaces are slightly desiccated. Conus terminates normally at L1-2 disc level. L1-L2: Normal. L2-L3: Mild annular disc bulging. Moderate ligamentum flavum and facet arthritis encroaching upon the central canal. Shallow RIGHT foraminal disc protrusion with osteophyte with mild contact on the exiting RIGHT L2 nerve root. Mild central and bilateral subarticular recess stenosis. Mild LEFT foraminal stenosis. L3-L4: Diffuse annular disc bulging with marked ligamentum flavum and facet arthritis. Bilateral foraminal disc protrusions. Mild central, subarticular recess and moderate bilateral foraminal stenosis, LEFT greater than RIGHT. L4-L5: Diffuse annular disc bulging with a broad-based disc protrusion. There is disc encroachment upon the traversing L5 nerve roots. Bilateral foraminal disc protrusions. Moderate RIGHT and mild LEFT foraminal stenosis. Severe facet joint arthritis and ligamentum flavum hypertrophy. Moderate central and subarticular recess stenosis. Small facet joint cyst on the RIGHT at L4-5. L5-S1: Diffuse annular disc bulging with a tiny central disc protrusion. Mild encroachment upon the S1 nerve roots but no displacement. RIGHT foraminal disc osteophyte contacting the exiting RIGHT L5 nerve root. Bilateral renal cysts. MR/MR lumbar spine wo con* [id number] IMPRESSION: 1. No acute lumbar spine fracture. 2. Remote fractures at L2 and L4 without retropulsion. 3. L3-4: Moderate bilateral foraminal stenosis due to disc protrusions and ost eophytes. Slightly greater foraminal narrowing on the LEFT. Additional mild iman tral and subarticular recess stenosis. 4. L4-5: Moderate central and bilateral subarticular recess stenosis. Moderate RIGHT and mild LEFT foraminal stenosis due to disc osteophyte disease. 5. Small facet joint cyst on the RIGHT at L4-5. 6. L5-S1: Small central disc protrusion. RIGHT foraminal stenosis with disc os teophyte contacting the exiting RIGHT L5 nerve root. 7. L2-3: Mild central, bilateral subarticular recess and LEFT foraminal stenos is.
== END 2024-09-04 12:45 | disposition home or self-care (01) ==
PROVIDERS: PCP Family Medicine; Visit Provider Anesthesiology Pain Medicine
DX: M54.16 Radiculopathy, lumbar region (principal); M48.061 Spinal stenosis, lumbar region without neurogenic claudication; M51.26 Other intervertebral disc displacement, lumbar region; M25.78 Osteophyte, vertebrae; M71.38 Other bursal cyst, other site; M51.27 Other intervertebral disc displacement, lumbosacral region; M48.07 Spinal stenosis, lumbosacral region; M43.8X6 Other specified deforming dorsopathies, lumbar region; M48.56XA Collapsed vertebra, not elsewhere classified, lumbar region, initial encounter for fracture; M51.46 Schmorl's nodes, lumbar region; M51.369 Other intervertebral disc degeneration, lumbar region without mention of lumbar back pain or lower extremity pain; M24.28 Disorder of ligament, vertebrae; M47.896 Other spondylosis, lumbar region; M51.379 Other intervertebral disc degeneration, lumbosacral region without mention of lumbar back pain or lower extremity pain; N28.1 Cyst of kidney, acquired
CPT/HCPCS: 72148

== ENCOUNTER → 2024-09-09 13:56 | Outpatient (BNVA) | payer MEDICARE, SELFPAY | PROVIDERS: PCP Family Medicine; Visit Provider Anesthesiology Pain Medicine | DX: M54.9 Dorsalgia, unspecified (principal); M51.16 Intervertebral disc disorders with radiculopathy, lumbar region; M47.816 Spondylosis without myelopathy or radiculopathy, lumbar region | CPT/HCPCS: 99214 ==

== ENCOUNTER 2024-10-01 05:00 | Outpatient (RCR) | payer MEDICARE, SELFPAY | END 2024-10-31 23:59 | disposition home or self-care (01) | LOC: MPT 05:00 | PROVIDERS: PCP Family Medicine; Visit Provider Anesthesiology Pain Medicine | DX: M54.9 Dorsalgia, unspecified (principal) | CPT/HCPCS: 97110; 97140; G0283 ==

== ENCOUNTER 2025-01-09 12:54 | Outpatient (CLI) | payer MEDICARE, SELFPAY ==
--- NOTE | 2025-01-09 13:00 | MM_ITS ---
WS: [id number] BILATERAL 3D TOMOSYNTHESIS DIGITAL SCREENING MAMMOGRAPHY WITH CAD CLINICAL INFORMATION: SCREENING HISTORY: Screening mammogram. No current complaints. COMPARISON: 2023 TECHNIQUE: Bilateral CC and MLO views. FINDINGS: The breasts are composed of heterogeneous fibroglandular density tissue, which can limit the detection of small underlying mass lesions. No suspicious mass, asymmetry, calcifications, or architectural distortion. No evidence of malignancy. Punctate lucent centered calcifications. MM/MM [facility] tomosynthesis [id number] IMPRESSION: DENSITY: The breasts are heterogeneously dense, which may obscure small masses. BI-RADS: 2 - Benign FOLLOW UP: 1 Year Follow-up Recommend return to annual screening mammography.
== END 2025-01-09 12:55 | disposition home or self-care (01) ==
LOC: MOBLMAM 13:04
PROVIDERS: PCP Family Medicine; Visit Provider Family Medicine
DX: Z12.31 Encounter for screening mammogram for malignant neoplasm of breast (principal); R92.333 Mammographic heterogeneous density, bilateral breasts; R92.323 Mammographic fibroglandular density, bilateral breasts; R92.1 Mammographic calcification found on diagnostic imaging of breast
CPT/HCPCS: 77063; 77067